=== PATIENT | female | born 1950 | race Caucasian/White ===

== ENCOUNTER 2020-02-04 07:32 | Day surgery (SDC) | payer OTHER ==
--- OUTSIDE RECORDS SUMMARY | 2020-02-04 07:35 | XMS REPORT ---
:1950 Author Organization eClinicalWorks Care Team Providers Name Role Phone Onelia Person Provider Role Unavailable Allergies No Known Allergies Problems Problem Type Condition Code Onset Dates Condition Statu s Problem Asymptomatic age-related Z78.0 Act sandi postmenopausal state Problem Essential hypertension I10 Activ e Problem Pain in joint, multiple sites M25.50 Active Problem Pain in left hand M79.642 Active Problem Other intermediate designer (current) drug Z79.899 Active therapy Problem Pain in right hand M79.641 Active Problem Inflammatory polyarthropathy M06.4 Active Problem Other obesity E66.8 Active Problem Rheumatoid arthritis involving M05.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
--- OUTSIDE RECORDS SUMMARY | 2020-02-04 07:35 | XMS REPORT | Continuity of Care Document ---
:1950 Author Organization [employer] Care Team Providers Name Role Phone [facility] Unavailable Un available Problems Problem Status Onset Classification Date Comments Sourc e Date Reported Asymptomatic 06/28/19 09/30/2017 MH OPI D menopausal state 18 [place] M25.50 - PAIN IN Active 06/09/19 [facility] UNSPECIFIED JOINT 18 [place] Asymptomatic Active Problem 11/26/2019 [facility] age-related of [place] postmenopausal state Essential Active Problem 11/26/2019 [facility] hypertension of [place] Pain in joint, Active Problem 11/26/2019 [facility] multiple sites of [facility] Pain in left hand Active Problem 11/26/2019 [facility] [place] Other group home Active Problem 11/26/2019 [facility] (current) drug of [facility] u therapy Pain in right hand Active Problem 11/26/2019 [facility] [place] Inflammatory Active Problem 11/26/2019 [facility] polyarthropathy of H ou Other obesity Active Problem 11/26/2019 [facility] [place] Rheumatoid Active Problem 11/26/[address] arthritis of [place] involving multiple sites with positive rheumatoid factor Adverse effect of Active Problem 11/26/2019 [facility] unspecified drugs, o f [place] medicaments and biological substances, initial encounter Rash Active Diagnosis 11/10/2019 [facility] [place] Pain in left hip 09/30/2017 [facility] [place] Pain in joints of 09/30/2017 M [facility] left hand [place] Pain in joints of 09/30/2017 M [facility] right hand [place] Primary 09/30/2017 [facility] osteoarthritis, [place] right hand Primary 09/30/2017 [facility] osteoarthritis, [place] left hand Medications Medication Details Route Status Patient Ordering Order Source Instructions Provider Date Xeljanz XR 1 tablet Orally Active 11 MG Orally [facility] Once a day 019 [facility] [place] Folic Acid 1 capsule Orally Active 5 MG Orally [facility] Once a day 019 [facility] [place] Folic Acid 1 tablet Orally Active 1 MG Orally Vo [facility] Once a day 019 [facility] [place] Methotrexate 7 tablets Orally Active 2.5 MG Orally Vo Rhe um as directed once a week 018 [facility] [place] Sulfasalazine 2 tablets Orally Active 500 MG Orally Vo Rh eum twice a day 018 [facility] [place] Sulfasalazine 2 tablets Orally Active 500 MG Orally Vo Rh eum twice a day [facility] [place] Xlear Sinus Care not defined Nasally Active - Nasally Vo R [facility] [place] [facility] [place] Nexabiotic as directed Orally Active - Orally [facility] [place] Citracal not defined Orally Active 600-40-500 Vo Rhe[facility] Calcium+D MG-MG-UNIT [facility] Orally [place] Losartan 1 tablet Orally Active 50-12.5 MG Vo Rhe[facility] Potassium-HCTZ Orally Once a [facility]tr of day [place] 3 not defined NA Active Vo [facility] [place] Trimethoprim 1 tablet Orally Active 100 MG Orally Vo Rheu m Once a day [facility] [place] Triamterene-HCTZ 1 tablet in Orally Active 37.5-25 MG Vo Rheum the morning Orally Once a Ctr of day [place] Folic Acid 1 tablet Orally Active 1 Orally Once Vo Rheum a day [facility] [place] Folic Acid TAKE 3 NA Active 1 MG Vo Rheum TABLETS [facility]tr of ONCE DAILY [place] Vitamin D 1 tablet Orally Active 2000 UNIT Vo Rheum Orally Once a [facility]tr of day [place] Cetirizine HCl 1 tablet Orally Active 10 MG Orally Vo Rhe um Once a day [facility] [place] Probiotic not defined Orally Active - Orally Vo [facility] [place] Celecoxib 1 capsule Orally Active 200 MG Orally Vo Rhe[facility] with food Once a day [facility] [place] Aleve 1 tablet Orally Active 220 MG Orally Vo Rheum with food every 12 hrs Ctr of or milk as [place] needed Trimethoprim 1 tablet Orally Active 100 mg Orally Vo Rheu m Once a day as Ctr of needed [place] Allergies, Adverse Reactions, Alerts Substance Category Reaction Severity Reaction Status Date Comments S ource type Reported Penicillin G Adverse swelling Adverse Active Rheum Benzathine Reaction Reaction 0 [facility] [place] Iodine Adverse hives/swell Adverse Active Rh eum Reaction ing Reaction 0 [facility] [place] Demerol Adverse Info Not Adverse Active Rheum Reaction Available Reaction 0 [facility] [place] Immunizations No Data Provided for This Section Results No Data Provided for This Section Pathology Reports No Data Provided for This Section Diagnostic Reports Report Value Date Source Bone Density DXA Dual 06/24/2017 URIEL SKY [facility] [place] BONE DENSITY ASSESSMENT: 06/24/2017 CLINICAL DATA: Post menopaus al. Z78.0 asymptomatic postmenopausal state. Z78.0 Asymptomatic Menopausal State/Z78.0 Asymptomatic Menopausal State RISK FACTORS: race. FINDINGS: Bone density evaluation was performed 06/24/2017 on the right femur neck using a Hologic unit. The BMD average for the exam is 0.806 g/cm2. The T-score is - 0.40 and the Z-score is 1.30. This matches t he World Health Organization 's criteria for normal bone density and places the patient within normal limits of fracture risk. An additional bone density e valuation was performed 06/24/2017 on the left femur neck using a Hologic unit. The BMD average for the exam is 0.847 g/cm2. The Z-score is 1.60. Complete risk assessment of this region was not determined. An additional bone density e valuation was performed 06/24/2017 on the right total femur area using a Hologic unit. The BMD average for the exam is 0.999 g/cm2. The T-score is 0.50 and the Z-score is 1. 80. This matches the World Health Organization's criteria for normal bone density and places the patient within normal limits of fracture risk. An additional bone density e valuation was performed 06/24/2017 on the left total femur area using a Hologic unit. The BMD average for the exam is 1.064 g/cm2. The T-score is 1.00 and the Z-score is 2.4 0. This matches the World H ealth Organization's criteria for normal bone density and places the patient within normal limits of fracture risk. An additional bone density e valuation was performed 06/24/2017 on the AP L1-L4 region of spine using a Hologic unit. The BMD average for the exam is 1.287 g/cm2. The T-score is 2.20 and the Z-score is 4.10. This matches the Worl d Health Organization's criteria for normal bone density and places the patient within normal limits of fracture risk. IMPRESSION: BONE DENSITY WITHIN NORMAL LIMITS Patient is at normal risk fo r fracture. This exam was interpreted at [id number] for NITESH Victor 15. Vishnu Lee M.D. rsadela/penflakito:06/24/2017 10:16:15 Skin Lap Bonder(s): Alla [facility] Hip 2/3 views uni w Patient Name: ORACIO SCRUGGS 06/24/2017 CLAUDIALuis F [place] pelvis DX : 1950; Age: 66 years y/o Female MR: [id number] BILATERAL HIPS AND PELVIS * RIGHT HIP (2 views) with frontal PELVIS History: right hip pain; Technique: Frontal neutral a nd frog-leg images of the right hip and a frontal radiograph of the pelvis were obtained. FINDINGS: There is no evidence of fracture, dislocation, o r acute change. The joint space is well-main tained. There are no degenerative changes or other significant osseous abnormalities. The pelvic ring is intact. IMPRESSION: 1. Negative right hip and pelvis. * LEFT HIP (2 views) with frontal PELVIS History: left hip pain Technique: Frontal neutral a nd frog-leg images of the left hip and a frontal radiograph of the pelvis were obtained. FINDINGS: There is no evidence of fracture, dislocation, o r acute change. The joint space is well-main tained. There are no degenerative changes or other significant osseous abnormalities. The pelvic ring is intact. IMPRESSION: 1. Negative left hip and pelvis. SL: [id number] Hand 2 views Bilateral Study: Bilateral hands, 3 views 8 JOSE DANIEL Mcclain DX Clinical Indication: Bilateral hand pain Comparison: None FINDINGS: Multiple views of the bilateral hands show no acute bony fracture, joint dislocation, or discrete osseous erosion. Scattered mild osteoarthritic changes throughout the DIP joints are seen with mild joint space narrowing and minimal marginal osseous spurring. Bony mineralization is normal. Soft tissues are unremarkable. IMPRESSION: Mild osteoarthro sis throughout the DIP joints of the bilateral hands. SL: [id number] Consultation Notes No Data Provided for This Section Discharge Summaries No Data Provided for This Section History and Physicals No Data Provided for This Section Vital Signs Vital Sign Value Date Comments Source Weight 195 11/09/2019 [facility] Height 61 11/09/2019 [facility] Heart Rate 71 11/09/2019 [facility] Diastolic (mm Hg) 69 11/09/2019 [facility] [place] Systolic (mm Hg) 123 11/09/2019 [facility] [place] Weight 222.5 05/25/2019 [facility] Height 61 05/25/2019 [facility] Heart Rate 58 05/25/2019 [facility] Diastolic (mm Hg) 63 05/25/2019 [facility] [place] Systolic (mm Hg) 119 05/25/2019 [facility] [place] Weight 185 02/23/2019 [facility] Height 61 02/23/2019 [facility] Heart Rate 64 02/23/2019 [facility] Diastolic (mm Hg) 101 02/23/2019 [facility] [place] Systolic (mm Hg) 162 02/23/2019 [facility] [place] Weight 180 12/22/2018 [facility] Height 61 12/22/2018 [facility] Heart Rate 110 12/22/2018 [facility] Diastolic (mm Hg) 77 12/22/2018 [facility] [place] Systolic (mm Hg) 142 12/22/2018 [facility] [place] Weight 183.8 09/22/2018 [facility] Height 61 09/22/2018 [facility] Heart Rate 97 09/22/2018 [facility] Diastolic (mm Hg) 88 09/22/2018 [facility] [place] Systolic (mm Hg) 124 09/22/2018 [facility] [place] Encounters Location Location Encounter Encounter Reason Attending ADM IA Stat Source Details Type Number For Provider Date Date Visit [facility] Outpt Diag [id number] Onelia 06/24 06/25 [facility] [place] [facility] [place] Procedures No Data Provided for This Section Assessment and Plan No Data Provided for This Section Plan of Care No Data Provided for This Section Social History Social History Date Source No data available for this 06/25/2017 [facility] Karena and section Family History No Data Provided for This Section Advance Directives No Data Provided for This Section Functional Status No Data Provided for This Section
--- OUTSIDE RECORDS SUMMARY | 2020-02-04 07:35 | XMS REPORT ---
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 Z79.899 Active therapy Problem Pain in right hand M79.641 Active Problem Inflammatory polyarthropathy M06.4 Active Problem Other obesity E66.8 Active Problem Rheumatoid arthritis involving M05.79 Active multiple sites with positive rheumatoid factor Problem Adverse effect of unspecified T50.905A Active drugs, medicaments and biological substances, initial encounter Assessment Asymptomatic age-related Z78.0 Act sandi postmenopausal state Assessment Other custodial (current) drug Z79.899 Active therapy Assessment Rash R21 Active Assessment Other obesity E66.8 Active Assessment Rheumatoid arthritis involving M05.79 Active multiple sites with positive rheumatoid factor Assessment Essential hypertension I10 Activ e Medications Medication Code Code Instructions Start End Status Dosage System Date Date Xeljanz XR [facility] 65350310968 11 MG Orally Dec 23, Dec 17, Active 1 ta blet Once a day 2018 2019 Folic Acid [facility] 36289441843 1 Orally Once a Active 1 tablet day [place] [address] Active not defined Cetirizine HCl ND 61998721166 10 MG Orally Active 1 tablet Once a day Methotrexate ND 76018324850 2.5 MG Orally Apr 24, Active 7 tablets once a week 2017 as directed Probiotic ND 93810253771 - Orally Active not defin ed Xlear Sinus Care [facility] 21274623252 - Nasally Active n ot defined [place] Vitamin D ND 04952883970 2000 UNIT Active 1 tablet Orally Once a day Citracal [facility] 0 600-40-500 Active not defined Calcium+D MG-MG-UNIT Orally Losartan [facility] 49283766513 50-12.5 MG Active 1 tablet Potassium-HCTZ Orally Once a day Nexabiotic [facility] 01679254515 - Orally Active as direc verito Trimethoprim [facility] 19396182683 100 mg Orally Active 1 tablet Once a day as needed Sulfasalazine [facility] 30911567223 500 MG Orally Active 2 tablets twice a day Folic Acid [facility] 07970843398 1 MG Active TAKE 3 TABLETS ONCE DAILY Triamterene-HCTZ [facility] 42750984729 37.5-25 MG Active 1 tablet in Orally Once a the mornin g day Celecoxib [facility] 94551431822 200 MG Orally Active 1 ca psule Once a day with food Vital Signs Date/Time: May 25, 2019 BMI 42.04 Index Weight 222.5 lbs Height 61 in Cardiac Monitoring Heart Rate 58 /min Blood Pressure Diastolic 63 mm Hg Blood Pressure Systolic 119 mm Hg Results No Known Results Summary Purpose eClinicalWorks Submission
--- OUTSIDE RECORDS SUMMARY | 2020-02-04 07:35 | XMS REPORT ---
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.899 Active therapy Problem Pain in right hand M79.641 Active Problem Inflammatory polyarthropathy M06.4 Active Problem Other obesity E66.8 Active Problem Rheumatoid arthritis involving M05.79 Active multiple sites with positive rheumatoid factor Problem Adverse effect of unspecified T50.905A Active drugs, medicaments and biological substances, initial encounter Assessment Asymptomatic age-related Z78.0 Act sandi postmenopausal state Assessment Other fpc (current) drug Z79.899 Active therapy Assessment Rash R21 Active Assessment Other obesity E66.8 Active Assessment Rheumatoid arthritis involving M05.79 Active multiple sites with positive rheumatoid factor Assessment Essential hypertension I10 Activ e Medications Medication Code Code Instructions Start End Status Dosage System Date Date Aleve [facility] 53064079041 220 MG Orally Active 1 tabl et every 12 hrs with food or milk as needed Nexabiotic [facility] 51265527465 - Orally Active as direc verito Xlear Sinus Care [facility] 13973665197 - Nasally Active n ot defined [place] Folic Acid [facility] 86699667902 1 MG Active TAKE 3 TABLETS ONCE DAILY Folic Acid [facility] 21333742134 1 Orally Once a Active 1 tablet day [place] 3 [facility] [address] Active not defined Triamterene-HCTZ [facility] 29873410176 37.5-25 MG Active 1 tablet in Orally Once a the mornin g day Losartan ND 71143815198 50-12.5 MG Active 1 tablet Potassium-HCTZ Orally Once a day Cetirizine HCl [facility] 40243408096 10 MG Orally Active 1 tablet Once a day Trimethoprim [facility] 98376751303 100 mg Orally Active 1 tablet Once a day as needed Probiotic [facility] 67876009986 - Orally Active not defin ed Methotrexate ND 41676968154 2.5 MG Orally Apr 24, Active 7 tablets once a week 2018 as directed Sulfasalazine ND 68001716006 500 MG Orally Active 2 tablets twice a day Vitamin D [facility] 05523684854 2000 UNIT Active 1 tablet Orally Once a day Citracal [facility] 0 600-40-500 Active not defined Calcium+D MG-MG-UNIT Orally Xeljanz XR [facility] 66274165437 11 MG Orally Dec 23, Active 1 ta blet Once a day 2018 Celecoxib [facility] 30310005191 200 MG Orally Active 1 ca psule Once a day with food Vital Signs Date/Time: November 09, 2019 BMI 36.84 Index Weight 195 lbs Height 61 in Cardiac Monitoring Heart Rate 71 /min Blood Pressure Diastolic 69 mm Hg Blood Pressure Systolic 123 mm Hg Results No Known Results Summary Purpose eClinicalWorks Submission
[2020-02-04] MEDS ORDERED: Ringers Lactate 1,000 ML IV ONE (08:02)
[2020-02-04] MEDS ORDERED: CEFAZOLIN/SWI 1gm 0 GM/0 ML SYR ONE (08:02)
[2020-02-04] MEDS ORDERED: BUPIVACA 0.25%/EPI 0.0005%/PF 30 ML VIAL ONE (08:07)
[2020-02-04] MEDS ORDERED: MIDAZOLAM HCL 2 MG/2 ML INJ IV ONE (08:14)
[2020-02-04] MEDS ORDERED: propofoL 200 MG/20 ML VIAL IV ONE (08:14)
[2020-02-04] MEDS ORDERED: FENTANYL CITR 100 MCG/2 ML IV ONE (08:14)
--- NOTE | 2020-02-04 08:56 | P.OP ---
Preoperative diagnosis: Upper Middle Back Cyst with Abscess Postoperative diagnosis: Upper Middle Back Cyst with Abscess Primary procedure: Wide Local Excision of Upper Middle Back Cyst with Abscess Anesthesia: GETA + Local Estimated blood loss: <2cc Specimen: Cultures and debridement tissue Findings: 5x5x2 cm abscess Complications: None Transferred to: Recovery Room Condition: Good
[2020-02-04] MEDS: HYDROMORPHONE HCL 1 MG/ML INJ ONE ×2 (09:36→09:41)
--- NOTE | 2020-02-04 09:38 | OP ---
Date of Procedure: 02/04/2020 Surgeon: Doron Smith MD, Preoperative Diagnosis: Upper middle back cyst with abscess. Postoperative Diagnosis: Upper middle back cyst with abscess. Procedure Performed: Wide local excision of upper middle back cyst with abscess. Anesthesia: General endotracheal plus local with 0.25% Marcaine. Estimated Blood Loss: Less than 2 mL. Specimen: Cultures sent for both aerobic and anaerobic speciation and debridement tissue. Findings: 5 x 5 x 2 cm abscess of the upper midback as described above. Complications: None. Transferred to recovery room in good condition. Procedure In Detail: After informed consent was obtained, the patient was brought to the operating r oom, prepped and draped in usual sterile fashion. After adequate anesthesia was achieved, an ellipti oly incision was made around the upper middle back cyst area, which is approximately 5 cm x 5 cm in s ize down to subcutaneous tissues using a 15 blade. Dissection continued down using electrocautery do wn to subcutaneous tissue, immediately encounter with an abscess and it is sent for aerobic and anaer obic speciation. At this point, all necrotic tissue was removed with a combination of blunt dissecti on, curette, and electrocautery. After all necrotic tissue was removed and clean tissue was left beh ind, hemostasis easily achieved with electrocautery. The area was copiously irrigated multiple times until completely clear. Then, packed with Adaptic, dry gauze and sterile dressing placed on top. T he patient tolerated the procedure well without evidence of complication and transferred to PACU in good condition. All counts were correct at the end of the case. CONTRERAS/YOUSIF Voice ID: [id number] Report ID: [id number]
[2020-02-04 09:53] VITALS: O2SAT 100
[2020-02-04] MEDS ORDERED: HYDROMORPHONE HCL 1 MG/ML INJ ONE (09:55)
[2020-02-04] MEDS ORDERED: CODEINE 30MG/APAP 300MG TAB ONE (11:49)
[2020-02-04 17:48] VITALS: BP 113/47; TEMP 97
== END 2020-02-04 12:27 | disposition home or self-care (01) ==
LOC: OR 07:32
PROVIDERS: ATTEND Surgery
PROC: 0JB70ZZ Excision of Back Subcutaneous Tissue and Fascia, Open Approach (ICD-10-PCS; principal; 2020-02-04 08:30)
DX: L72.0 Epidermal cyst (principal); L02.212 Cutaneous abscess of back [any part, except buttock and flank]; Z20.828 Contact with and (suspected) exposure to other viral communicable diseases
CPT/HCPCS: 87070; 87205 ×2; 88304; 87075; 11406; U0002; J2704; J2250; J3010; J1170 ×2; J7120; J0690

== ENCOUNTER 2023-06-06 07:30 | Day surgery (SDC) | payer OTHER ==
[2023-06-06] MEDS: BUPIVACAINE 0.25% PF 30 ML VIAL ONE ×3 (09:24→10:06)
[2023-06-06] MEDS: NA CHLORIDE 0.9% 1,000 ML ONE ×2 (09:25→09:42)
[2023-06-06] MEDS: CLINDAMYCIN 300 MG/NS 50 ML IV 50 ML IV ONE ×2 (09:25→09:52)
[2023-06-06] MEDS ORDERED: propofoL 200 MG/20 ML VIAL IV ONE (09:44)
[2023-06-06] MEDS ORDERED: LIDOCAINE 2% MPF 5 ML VIAL ONE (09:44)
[2023-06-06] MEDS ORDERED: FENTANYL CITR 100 MCG/2 ML ONE (09:54)
--- NOTE | 2023-06-06 10:22 | P.OP ---
Preoperative diagnosis: RIGHT posterior shoulder cyst Postoperative diagnosis: RIGHT posterior shoulder cyst Primary procedure: Wide Excision of RIGHT posterior shoulder cyst Anesthesia: GETA + Local Estimated blood loss: <5cc Specimen: Cultures, cyst Findings: ~ 2cm x 3cm infected sebaceous cyst Complications: None Transferred to: Recovery Room Condition: Good
[2023-06-06] MEDS ORDERED: HYDROMORPHONE HCL 1 MG/ML INJ ONE (10:56)
[2023-06-06] MEDS ORDERED: HYDROCODONE/APAP 7.5/325 MG TAB ONE (11:45)
[2023-06-06 12:08] VITALS: BP 134/75; TEMP 97; O2SAT 100
--- NOTE | 2023-06-06 13:06 | OP ---
Date of Procedure: 06/06/2023 Surgeon: Doron Smith MD, Preoperative Diagnosis: Right posterior shoulder cyst. Postoperative Diagnosis: Right posterior shoulder cyst. Procedure Performed: Wide excision of right posterior shoulder cyst. Anesthesia: General endotracheal plus local with 0.25% Marcaine. Estimated Blood Loss: 5 cc. Specimen: Culture sent for aerobic and anaerobic speciation and sebaceous infected cyst of the right posterior shoulder. Findings: Approximately 2 cm x 3 cm infected sebaceous cyst. Complications: None. Disposition: Patient transferred to recovery room in good condition. Procedure In Detail: After informed consent was obtained, patient was brought to the operating room, prepped and draped in the usual sterile fashion after adequate anesthesia was achieved. I anestheti zed an area of the right posterior shoulder blade region down to the subcutaneous tissues. I then ma de an elliptical incision using a 15 blade down to subcutaneous tissues, taking an ellipse of skin wi th an obvious infected sebaceous cyst. Cultures were sent for both aerobic and anaerobic speciation. This was taken out in its entirety using electrocautery, at this point, down to the fascia overlyin g the muscle, but not involving the muscle. At this point, the area was copiously irrigated. Hemost asis was achieved with electrocautery. The area was irrigated once again and it was partially reappr oximated with 2-0 nylon sutures in an interrupted fashion. The central portion had packing placed wi th Vashe soaked one 0.25 inch plain packing and a sterile dressing placed over top. The patient tole rated the procedure without incident or complication, transferred to PACU in good condition. All counts were correct at the end of the case. CONTRERAS/YOUSIF Voice ID: [id number] Report ID: [id number]
--- NOTE | 2023-06-09 17:03 | EKG ---
Test Date: 2023-06-06 Test Time: 10:00:53 Animal Laboratory Helper: MEASUREMENT RESULTS: Intervals: Rate: 60 ME: 168 QRSD: 136 QT: 464 QTc: 464 [place]: P: 77 ME: 168 QRS: 5 T: 12 INTERPRETIVE STATEMENTS: Normal sinus rhythm Right bundle branch block Abnormal ECG Compared to ECG 08/22/2022 12:29:16 Sinus bradycardia no longer present Electronically Signed On 06-09-23 16:54:35 TELECOM BILLING ANALYST by Ulysses Smith
== END 2023-06-06 12:27 | disposition home or self-care (01) ==
LOC: OR 07:30
PROVIDERS: ATTEND Surgery
PROC: 0JBD0ZZ Excision of Right Upper Arm Subcutaneous Tissue and Fascia, Open Approach (ICD-10-PCS; principal; 2023-06-06 10:05)
DX: L72.0 Epidermal cyst (principal); I10 Essential (primary) hypertension
CPT/HCPCS: 93005; 87070; 36415; 87205; 82947; 88304; 83880; 11402; J2704; J2001; J3010; J1170; J3490; J7030